=== PATIENT | female | born 1995 | race Caucasian/White ===

== ENCOUNTER 2024-05-04 13:43 | Emergency (ER) | payer BC, SELFPAY ==
--- NOTE | ~2024-05-04 | XR_ITS ---
XR chest 2V Ordering provider: Savannah Woodward NP History: 28 years Female with . cough and SOB . Comparison: None. FINDINGS: MEDIASTINUM: The cardiac silhouette is not enlarged. LUNGS: No infiltrates, effusions or pneumothorax. OTHER: No free air under the diaphragm. IMPRESSION: No acute cardiopulmonary pathology. Reviewed, dictated and finalized at location A.
[2024-05-04 14:05] VITALS: BP 138/85; PULSE 105; RESP 20; TEMP 37.3; O2SAT 100
--- NOTE | 2024-05-04 14:06 | ED.URI ---
HPI - URI/Sore Throat General Chief Complaint: Shortness of Breath/Dyspnea Stated Complaint: chest pain,SOB Time Seen by Provider: 05/04/24 14:06 Source: patient Mode of arrival: ambulatory Limitations: no limitations History of Present Illness HPI Narrative: 28-year-old female presents with complaint of cough, nasal and chest congestion, intermittent sore throat, fatigue, body aches for 3 days. Denies shortness of breath but has chest pain With coughing. Taking [id number] medications to treat her symptoms. Afebrile. All systems reviewed and negative except as noted above. Related Data Home Medications Medication Instructions Recorded Confirmed No Home Medications 05/04/24 05/04/24 Allergies Allergy/AdvReac Type Severity Reaction Status Date / Time No Known Allergies Allergy Verified 05/04/24 13:48 Review of Systems Review of Systems: CONSTITUTIONAL: Denies fever, chills, or sweats. EYES: Denies visual changes, redness, or discharge. ENT: Reports rhinorrhea, congestion, sore throat. Denies otalgia. CARDIOVASCULAR: Denies chest pain, palpitations, or edema. RESPIRATORY: reports cough. Denies dyspnea. GASTROINTESTINAL: Denies abdominal pain, nausea, vomiting, or diarrhea. GENITOURINARY: Denies dysuria or hematuria. SKIN: Denies rash or itching. MUSCULOSKELETAL: Denies back pain, joint pain, or myalgia. NEUROLOGIC: Denies headache, numbness, or weakness. PSYCHIATRIC: Denies anxiety or depression. All other systems reviewed are negative, except as documented in HPI. PMFSH Comments At time of signature, agree with nursing past medical, surgical, social and family history. There is no relevant family history pertinent to the presenting complaint. Exam Narrative: GENERAL: This is a well-nourished, well-developed patient, in no apparent distress. HEAD: normocephalic, atraumatic. EYES: PERRL. Sclera clear/white. Vision is grossly intact. EARS: External ears normal, auditory canals clear and without drainage, TMs normal without perforation. Hearing grossly intact. NOSE: External nose normal with clear nasal drainage, erythema to nares. THROAT: Mucous membranes moist, clear nasal drainage, erythema without significant swelling or exudates NECK: Neck supple, non-tender without lymphadenopathy, masses or thyromegaly. CARDIOVASCULAR: Regular rate and rhythm without murmurs, gallops, or rubs. RESPIRATORY: Clear to auscultation. Breath sounds equal bilaterally. No wheezes, rales, or rhonchi. SKIN: warm, Dry, intact with no suspicious lesions or rash, good texture and turgor. NEURO: awake, alert, and oriented to person, place and time. There were no obvious focal neurologic abnormalities. EXTREMITIES: No joint tenderness, effusion, or edema noted. Course Course Level of Care: Express Care Visit Vital Signs Vital signs: Vital Signs Temperature 37.3 C 05/04/24 14:05 Pulse Rate 105 H 05/04/24 14:05 Respiratory Rate 20 05/04/24 14:05 Blood Pressure 138/85 05/04/24 14:05 Pulse Oximetry 100 05/04/24 14:05 Oxygen Delivery Room Air 05/04/24 14:05 Temperature 37.3 C 05/04/24 14:05 Pulse Rate 105 H 05/04/24 14:09 Respiratory Rate 20 05/04/24 14:09 Blood Pressure 138/85 05/04/24 14:05 Pulse Oximetry 100 05/04/24 14:09 Oxygen Delivery Room Air 05/04/24 14:05 Reviewed MDM - URI/Sore Throat MDM Narrative Medical decision making narrative: negative influenza and strep test. Chest x-ray normal. Discussed results with patient. Recommend [id number] medications to treat symptoms. Patient is aware of diagnosis, understands and agrees to treatment plan. Anticipatory guidance given. Patient agrees to follow-up as directed and is aware of reasons to seek care at the emergency department. Portions of this record may have been created with voice recognition software Differential Diagnosis Differential diagnosis: Likely upper respiratory infection,
[2024-05-04 14:09] VITALS: PULSE 105; RESP 20; O2SAT 100
[2024-05-04 14:21] LABS: EDINFLUASCREEN Negative; EDINFLUBSCREEN Negative; EDSTREPNEGPOS1 Presumptive Negative
== END 2024-05-04 14:38 | disposition home or self-care (01) ==
PROVIDERS: Emergency Provider Nurse Practitioner Family
DX: J06.9 Acute upper respiratory infection, unspecified (principal)
CPT/HCPCS: 71046; 87081; 87804; 87880; 99203; G0463